=== PATIENT | female | born 1975 | race Caucasian/White ===

== ENCOUNTER 2018-07-22 08:00 | Outpatient (CLI) | payer OTHER ==
[2018-07-22 14:08] LABS: THYROID STIMULATING HORMONE 1.27 uIU/mL (0.34-5.60)
[2018-07-22 14:09] LABS: FREE T4 (FREE THYROXINE) 0.65 ng/dL (0.58-1.64)
[2018-07-22 14:15] LABS: CREATININE,URINE 83.6 mg/dL; MICROALBUM/CREATININE RATIO,UR 3.6 ug/mg (<30.0); MICROALBUMIN,URINE 0.3 mg/dL (0-300.0)
[2018-07-22 14:45] LABS: CHOL/HDL RATIO 1.6 (<4.4); CHOLESTEROL 246 mg/dL; HDL CHOLESTEROL 154 mg/dL; LDL CHOLESTEROL,CALCULATED 79 mg/dL; LDL/HDL RATIO 0.5 (<4.4); VLDL CHOLESTEROL 13 mg/dL
== END 2018-07-22 23:59 | disposition home or self-care (01) ==
LOC: LAB.N 08:00
PROVIDERS: ATTEND Internal Medicine Endocrinology, Diabetes & Metabolism
DX: R53.83 Other fatigue (principal); R63.5 Abnormal weight gain; E10.9 Type 1 diabetes mellitus without complications
CPT/HCPCS: 36415; 80061; 82043; 82570; 83721; 84439; 84443

== ENCOUNTER 2018-11-29 08:00 | Outpatient (CLI) | payer OTHER | END 2018-11-29 23:59 | disposition home or self-care (01) | LOC: LAB.R 08:00 | PROVIDERS: ATTEND Family Medicine | DX: N39.0 Urinary tract infection, site not specified (principal) | CPT/HCPCS: 87086; 87181 ==

== ENCOUNTER 2019-03-12 12:37 | Emergency (ER) | payer OTHER ==
[2019-03-12] MEDS ORDERED: IBUPROFEN 800 MG TABLET PO STA (13:13)
--- NOTE | 2019-03-12 13:14 | ED Physician Documentation ---
PD HPI LOWER EXT INJURY - Stated complaint Stated Complaint: ankle inj - Chief complaint Chief Complaint: Ext Problem - History obtained from History obtained from: Patient - History of Present Illness PD HPI LOW EXT INJURY LOCATION: Left (2 nights ago she inverted her left ankle. She is able to walk and bear weight but has a lot of pain especially at night. No other injuries.) Review of Systems Constitutional: reports: Reviewed and negative Nose: reports: Reviewed and negative Throat: reports: Reviewed and negative PD PAST MEDICAL HISTORY - Past Medical History Endocrine/Autoimmune: Type 1 diabetes - Present Medications Home Medications: Ambulatory Orders Medication Instructions Recorded Confirmed Hydrocodone/Acetaminophen 1 - 2 each PO Q6H PRN #20 tablet 03/12/19 [Hydrocodon-Acetaminophen 5-325] Insulin Glargine [Lantus Solostar] 0 unit 03/12/19 Insulin Lispro [Humalog] 0 unit SUBQ 03/12/19 03/12/19 - Allergies Allergies/Adverse Reactions: Allergies Allergy/AdvReac Type Severity Reaction Status Date / Time No Known Drug Allergies Allergy Verified 03/12/19 12:45 - Social History Does the pt smoke?: No Smoking Status: Never smoker PD ED PE NORMAL - Vitals Vital signs reviewed: Yes - General General: Alert and oriented X 3, No acute distress - Extremities Extremities: Other (The left ankle is quite swollen and very tender over the lateral malleolus more so than the fell. No proximal fibular tenderness. No foot tenderness.) - Neuro Neuro: Alert and oriented X 3, Normal speech Results - Vitals Vitals: Vital Signs - 24 hr 03/12/19 12:43 Temperature 37.3 C Heart Rate 86 Respiratory 20 Rate Blood Pressure 158/102 H O2 Saturation 100 Oxygen O2 Source Room air - Rads (name of study) 3v L ankle Radiology: EMP read contemporaneously (Oblique fracture of the left distal fibula, just above mortise.) Procedures - Splint (location) l ankle Splint applied by: Tech Type of splint: Fiberglass, Short leg, Posterior Other: Patient tolerated well, No complications, Neurovascular intact, Crutches provided Departure - Departure Disposition: 01 Home, Self Care Clinical Impression: Closed fracture of left distal fibula Qualifiers: Encounter type: initial encounter Fracture morphology: other fracture Qualified Code(s): S82.832A - Other fracture of upper and lower end of left fibula, initial encounter for closed fracture Condition: Good Record reviewed to determine appropriate education?: Yes Instructions: ED Cast Care Fiberglass, ED Fx Lower Ext Follow-Up: Hamlet Adams MD [Provider Admit Priv/Credential] - Prescriptions: Hydrocodone/Acetaminophen [Hydrocodon-Acetaminophen 5-325] 1 - 2 each PO Q6H PRN #20 tablet PRN Reason: pain Comments: Follow-up with the orthopedic surgeon within the week. Do not walk or bear weight on the left leg until advised it is safe to do so by the orthopedist. Elevate as much as possible. Return for new worsening symptoms. Do not drink or drive while taking narcotic pain medication. Note that many narcotic pain relievers also contain Tylenol/acetaminophen. Please ensure that your total dose of acetaminophen from all sources does not exceed 3 g (3000 mg) per day. You may get constipated while on this medication. Take a stool softener such as Colace twice a day while you are on it. Also add an [id number] laxative such as senna or MiraLAX on any day that you do not have a bowel movement. If you received a narcotic pain medication or sedative while in the emergency department, do not drive for the next 24 hours. Your blood pressure was elevated today on check into the emergency department. This does not mean that you have hypertension, it is a common phenomenon to come to the emergency department and have elevated blood pressure. I recommend that you see your primary care physician within the week to have it rechecked when you are feeling better.
--- NOTE | 2019-03-12 13:59 | XRAY Report ---
Reason: ankle inj Procedure Date: 03/12/2019 Accession Number: [id number] / [id number] Procedure: XR - Ankle 3 View LT CPT Code: FULL RESULT: EXAM: LEFT ANKLE RADIOGRAPHY EXAM DATE: 03/12/2019 01:44 PM. CLINICAL HISTORY: Rolled left ankle Kingsley evening. Foot has edema. COMPARISON: None. TECHNIQUE: 3 views. FINDINGS: Bones: Oblique fracture through the distal fibular metaphysis with minimal displacement. Fracture gap measures approximately 3.6 mm. Joints: No effusion. No subluxations. The ankle mortise is normally aligned. Soft Tissues: Large amount of lateral soft tissue swelling. IMPRESSION: Oblique fracture of the distal fibula. RADIA
[2019-03-12 14:52] VITALS: BP 153/77
== END 2019-03-12 14:58 | disposition home or self-care (01) ==
LOC: ED 12:37
DX: S82.432A Displaced oblique fracture of shaft of left fibula, initial encounter for closed fracture (principal); X50.1XXA Overexertion from prolonged static or awkward postures, initial encounter; X50.9XXA Other and unspecified overexertion or strenuous movements or postures, initial encounter; E10.9 Type 1 diabetes mellitus without complications
CPT/HCPCS: 29515; 73610; 99282; 99283; A9270

== ENCOUNTER 2019-05-02 08:00 | Outpatient (CLI) | payer OTHER ==
[2019-05-02 13:28] LABS: ALBUMIN 4.2 g/dL (3.2-5.5); ALBUMIN/GLOBULIN RATIO 1.4 (1.0-2.2); ALKALINE PHOSPHATASE 54 IU/L (42-121); ALT ALANINE AMINOTRANSFERASE 15 IU/L (10-60); AST ASPARTATE AMINOTRANSFERASE 22 IU/L (10-42); BILIRUBIN,TOTAL 0.8 mg/dL (0.2-1.0); BUN - BLOOD UREA NITROGEN 10 mg/dL (6-20); CALCIUM 9.3 mg/dL (8.5-10.3); CARBON DIOXIDE - CO2 24 mmol/L (21-32); CHLORIDE 105 mmol/L (101-111); CHOL/HDL RATIO 1.8 (<4.4); CHOLESTEROL 220 mg/dL; CREATININE 0.6 mg/dL (0.4-1.0); GFR - MDRD 110 (>89); GLUCOSE 138 mg/dL (70-100); HDL CHOLESTEROL 124 mg/dL; LDL CHOLESTEROL,CALCULATED 76 mg/dL; LDL/HDL RATIO 0.6 (<4.4); SODIUM 138 mmol/L (135-145); TOTAL PROTEIN 7.2 g/dL (6.7-8.2); VLDL CHOLESTEROL 20 mg/dL
[2019-05-02 14:32] LABS: CREATININE,URINE 71.5 mg/dL; MICROALBUMIN,URINE < 0.2 mg/dL (0-300.0)
== END 2019-05-02 23:59 | disposition home or self-care (01) ==
LOC: LAB.N 08:00
PROVIDERS: ATTEND Internal Medicine Endocrinology, Diabetes & Metabolism
DX: E10.9 Type 1 diabetes mellitus without complications (principal)
CPT/HCPCS: 36415; 80053; 80061; 82043; 82570; 83721; 84443

== ENCOUNTER 2019-11-23 09:41 | Outpatient (CLI) | payer OTHER ==
--- NOTE | 2019-11-27 13:25 | Mammography Report ---
BILATERAL DIGITAL SCREENING MAMMOGRAM 3D/2D: 11/23/2019 CLINICAL: Routine screening. Baseline exam. No prior exams were available for comparison. The tissue of both breasts is heterogeneously dense. T his may lower the sensitivity of mammography. No significant masses, calcifications, or other findings are seen in either breast. IMPRESSION: NEGATIVE There is no mammographic evidence of malignancy. A 1 year screening mammogram is recommended. This exam was interpreted at Station ID: [id number]. NOTE: For mammograms, a report in lay terms will be sent to the patient. Approximately 15% of breast malignancies will not be visualized mammographically. In the management of a palpable breast mass, a negative mammogram must not discourage biopsy of a clinically suspicious lesion. Electronically Signed By: Ranjit Wild M.D. [facility] – [place]:11/23/2019 18:28:56 ACR BI-RADS Category 1: Negative 3341F PARENCHYMAL PATTERN: (D) - The breast(s) demonstrate(s) heterogeneously dense fibroglandular karuna barber. BI-RADS CATEGORY: (1) - 1 RECOMMENDATION: (ANNUAL) - Recommend routine annual screening mammography. [id number] 1 year screening LATERALITY: (B)
== END 2019-11-23 09:42 | disposition home or self-care (01) ==
LOC: DI 09:41
DX: Z12.31 Encounter for screening mammogram for malignant neoplasm of breast (principal)
CPT/HCPCS: 77063; 77067

== ENCOUNTER 2020-01-15 13:27 | Outpatient (CLI) | payer OTHER ==
[2020-01-15 18:35] LABS: CALCIUM 10.1 mg/dL (8.5-10.3); CREATININE 0.6 mg/dL (0.4-1.0)
[2020-01-15 19:30] LABS: HEMOGLOBIN A1c% 6.1 % (4.27-6.07)
== END 2020-01-15 23:59 | disposition home or self-care (01) ==
LOC: LAB.WCP 13:27
PROVIDERS: ATTEND Nurse Practitioner Family
DX: E10.9 Type 1 diabetes mellitus without complications (principal)
CPT/HCPCS: 36415; 80048; 83036

== ENCOUNTER 2021-05-02 09:57 | Outpatient (CLI) | payer OTHER ==
[2021-05-02 13:42] LABS: ALBUMIN 4.6 g/dL (3.2-5.5); ALBUMIN/GLOBULIN RATIO 1.7 (1.0-2.2); ALKALINE PHOSPHATASE 39 IU/L (42-121); ALT ALANINE AMINOTRANSFERASE 31 IU/L (10-60); AST ASPARTATE AMINOTRANSFERASE 28 IU/L (10-42); BILIRUBIN,TOTAL 0.8 mg/dL (0.2-1.0); BUN - BLOOD UREA NITROGEN 13 mg/dL (6-20); CALCIUM 9.6 mg/dL (8.5-10.3); CARBON DIOXIDE - CO2 26 mmol/L (21-32); CHLORIDE 98 mmol/L (101-111); CHOL/HDL RATIO 3.1 (<4.4); CHOLESTEROL 200 mg/dL; CREATININE 0.6 mg/dL (0.4-1.0); GFR - MDRD 109 (>89); GLUCOSE 200 mg/dL (70-100); HDL CHOLESTEROL 64 mg/dL; LDL CHOLESTEROL,CALCULATED 121 mg/dL; LDL/HDL RATIO 1.9 (<4.4); SODIUM 134 mmol/L (135-145); TOTAL PROTEIN 7.3 g/dL (6.7-8.2); TRIGLYCERIDES 73 mg/dL; VLDL CHOLESTEROL 15 mg/dL
[2021-05-02 18:36] LABS: CREATININE,URINE 20.6 mg/dL; MICROALBUM/CREATININE RATIO,UR 9.7 ug/mg (<30.0); MICROALBUMIN,URINE 0.2 mg/dL (0-300.0)
[2021-05-02 20:02] LABS: ESTIMATED AVERAGE GLUCOSE 180 mg/dL (70-100); HEMOGLOBIN A1c% 7.9 % (4.27-6.07)
== END 2021-05-02 09:58 | disposition home or self-care (01) ==
LOC: LAB.N 09:57
PROVIDERS: ATTEND Internal Medicine Endocrinology, Diabetes & Metabolism
DX: E10.65 Type 1 diabetes mellitus with hyperglycemia (principal); I10 Essential (primary) hypertension
CPT/HCPCS: 36415; 80053; 80061; 82043; 82570; 83036; 83721; 84443

== ENCOUNTER 2022-08-17 10:51 | Outpatient (CLI) | payer OTHER ==
--- NOTE | 2022-08-18 09:36 | Mammography Report ---
BILATERAL DIGITAL SCREENING MAMMOGRAM 3D/2D: 08/17/2022 CLINICAL: High risk screening. Routine screening. Comparison is made to exam dated: 11/23/2019 mammogram - [facility]. Both breasts are heterogeneously dense, which may obscure small masses (category c / 51-75% glandular tissue). No significant masses, calcifications, or other findings are seen in either breast. There has been no significant interval change. IMPRESSION: NEGATIVE There is no mammographic evidence of malignancy. A 1 year screening mammogram is recommended. Based on the Tyrer Cuzick model (a risk assessment model) the patients lifetime risk is 14.3% and he r 10 year risk is 2.6%. According to the ACR, ACS, and NCCN guidelines, an annual breast MRI exam liam ng with mammogram is recommended if the patients lifetime risk is 20% or greater. This exam was interpreted at Station ID: [id number]. NOTE: For mammograms, a report in lay terms will be sent to the patient. Approximately 15% of breast malignancies will not be visualized mammographically. In the management of a palpable breast mass, a negative mammogram must not discourage biopsy of a clinically suspicious lesion. Electronically Signed By: Kit walton/[place]:08/17/2022 11:36:09 letter sent: No_Letter ACR BI-RADS Category 1: Negative 3341F PARENCHYMAL PATTERN: (D) - The breast(s) demonstrate(s) heterogeneously dense fibroglandular karuna barber. BI-RADS CATEGORY: (1) - 1 Mammogram [id number] 1 year screening LATERALITY: (B)
== END 2022-08-17 10:52 | disposition home or self-care (01) ==
LOC: DI.N 10:51
PROVIDERS: ATTEND Nurse Practitioner
DX: Z12.31 Encounter for screening mammogram for malignant neoplasm of breast (principal)

== ENCOUNTER 2023-07-06 09:51 | Outpatient (CLI) | payer OTHER ==
[2023-07-06 12:22] LABS: BASOPHILS # (AUTO) 0.1 10^3/uL (0.0-0.1); BASOPHILS % (AUTO) 1.1 %; EOSINOPHILS # (AUTO) 0.5 10^3/uL (0.0-0.7); EOSINOPHILS % (AUTO) 7.5 %; HGB - HEMOGLOBIN 13.7 g/dL (12.0-16.0); LYMPHOCYTES # (AUTO) 1.8 10^3/uL (1.5-3.5); LYMPHOCYTES % (AUTO) 28.6 %; MEAN CORPUSCULAR HEMOGLOBIN 28.8 pg (27.0-31.0); MEAN CORPUSCULAR HGB CONC 31.9 g/dL (32.0-36.0); MEAN CORPUSCULAR VOLUME 90.5 fL (81.0-99.0); MEAN PLATELET VOLUME 10.1 fL (7.9-10.8); MONOCYTES # (AUTO) 0.4 10^3/uL (0.0-1.0); MONOCYTES % (AUTO) 6.2 %; NEUTROPHILS # (AUTO) 3.6 10^3/uL (1.5-6.6); NEUTROPHILS % (AUTO) 56.4 %; PLT - PLATELET COUNT 372 10^3/uL (130-450); RED BLOOD COUNT 4.75 10^6/uL (4.20-5.40); WHITE BLOOD COUNT 6.3 x10^3/uL (4.8-10.8)
[2023-07-06 12:53] LABS: ALBUMIN 4.9 g/dL (3.2-5.5); ALBUMIN/GLOBULIN RATIO 2.1 (1.0-2.2); ALKALINE PHOSPHATASE 39 IU/L (42-121); ALT ALANINE AMINOTRANSFERASE 15 IU/L (10-60); AST ASPARTATE AMINOTRANSFERASE 20 IU/L (10-42); BILIRUBIN,TOTAL 0.6 mg/dL (0.2-1.0); BUN - BLOOD UREA NITROGEN 9 mg/dL (6-20); CALCIUM 10.1 mg/dL (8.5-10.3); CARBON DIOXIDE - CO2 29 mmol/L (21-32); CHLORIDE 103 mmol/L (101-111); CHOL/HDL RATIO 2.2 (<4.4); CHOLESTEROL 209 mg/dL; CREATININE 0.7 mg/dL (0.6-1.3); GFR - MDRD 90 (>89); GLUCOSE 149 mg/dL (74-104); HDL CHOLESTEROL 96 mg/dL; LDL CHOLESTEROL,CALCULATED 102 mg/dL; LDL/HDL RATIO 1.1 (<4.4); POTASSIUM 4.7 mmol/L (3.5-4.5); SODIUM 139 mmol/L (135-145); TOTAL PROTEIN 7.2 g/dL (6.4-8.9); TRIGLYCERIDES 55 mg/dL (48-352); VLDL CHOLESTEROL 11 mg/dL
[2023-07-06 12:57] LABS: ESTIMATED AVERAGE GLUCOSE 146 mg/dL (70-100); HEMOGLOBIN A1c% 6.7 % (4.27-6.07)
[2023-07-06 12:59] LABS: CREATININE,URINE 13.9 mg/dL
[2023-07-06 13:00] LABS: THYROID STIMULATING HORMONE 1.37 uIU/mL (0.34-5.60)
[2023-07-06 13:10] LABS: MICROALBUMIN,URINE < 0.7 mg/dL
== END 2023-07-06 09:52 | disposition home or self-care (01) ==
LOC: LAB.N 09:51
PROVIDERS: ATTEND Nurse Practitioner
DX: I10 Essential (primary) hypertension (principal); E10.9 Type 1 diabetes mellitus without complications; N95.9 Unspecified menopausal and perimenopausal disorder; F43.21 Adjustment disorder with depressed mood
CPT/HCPCS: 36415; 80053; 80061; 82043; 82570; 83001; 83002; 83036; 83721; 84443; 85025

== ENCOUNTER 2023-07-06 09:56 | Outpatient (CLI) | payer OTHER ==
--- NOTE | 2023-07-06 15:28 | XRAY Report ---
PROCEDURE: Shoulder 2+V RT INDICATIONS: RIGHT SHOULDER JOINT PAIN TECHNIQUE: 4 views of the shoulder were acquired. COMPARISON: None. FINDINGS: Bones: No fractures or dislocations. No suspicious bony lesions. Visualized ribs appear intact. Soft tissues: No suspicious soft tissue calcifications. The visualized lungs are within normal limi ts. IMPRESSION: No acute bony abnormality. Reviewed by: Jonathan Bonilla MD on 07/06/2023 3:26 PM PST Approved by: Jonathan Bonilla MD on 07/06/2023 3:26 PM PST Station ID: [id number]
== END 2023-07-06 09:57 | disposition home or self-care (01) ==
LOC: DI.N 09:56
PROVIDERS: ATTEND Nurse Practitioner
DX: M25.511 Pain in right shoulder (principal); I10 Essential (primary) hypertension; E10.9 Type 1 diabetes mellitus without complications; N95.9 Unspecified menopausal and perimenopausal disorder; F43.21 Adjustment disorder with depressed mood
CPT/HCPCS: 36415; 80053; 80061; 82043; 82570; 83001; 83002; 83036; 83721; 84443; 85025

== ENCOUNTER 2023-12-20 13:30 | Outpatient (CLI) | payer OTHER | END 2023-12-20 13:45 | disposition home or self-care (01) | LOC: LAB.N 13:30 | PROVIDERS: ATTEND Nurse Practitioner | DX: N39.0 Urinary tract infection, site not specified (principal) | CPT/HCPCS: 87086 ==

== ENCOUNTER 2024-02-17 08:00 | Outpatient (CLI) | payer OTHER | END 2024-02-17 23:59 | disposition home or self-care (01) | LOC: LAB 08:00 | PROVIDERS: ATTEND Physician Assistant | DX: R30.0 Dysuria (principal) | CPT/HCPCS: 87086 ==